=== PATIENT | female | born 1985 | race Caucasian/White ===

== ENCOUNTER 2016-08-15 01:14 | Emergency (ER) | payer SELFPAY ==
[~2016-08-15 01:14] MED LIST: AMOXICILLIN500 M1 PO; AMOXICILLIN875 MG PO; ANSAID100 MG PO; ANTIVERT PO; ANUSOL-HC CREAM30 G1 EXT; ARIXTRA10 MG/0.8 SQ; ASPIRIN EC81 M1 PO; ASPIRIN81 M2; BACTRIM DS TABL1 TA1 PO; BACTRIM DS TABL1 TA2 PO; BENTYL10 MG PO; BENTYL20 MG PO; CELEXA; CELEXA PO; COUMADIN7.5 MG PO; DICLOFENAC PO; FERROUS SULFATE PO; FLEXERIL10 MG PO; FLUOXETINE HCL40 MG; HCTZ; HYDRALAZINE HCL50 MG PO; HYDROCHLOROTH12.5 MG PO; HYDROCODON-ACE1 EAC7 PO; KCL; KEFLEX500 M1 PO; LISINOPRIL PO; LISINOPRIL-HCTZ1 T19; LISINOPRIL-HCTZ1 T19 PO; LISINOPRIL/HCTZ PO; LORTAB 10/500 T1 TAB PO; LORTAB 5-325 M1 EACH PO; MICRO-K PO; NAPROSYN500 MG PO; NORCO 10-325 TA1 TAB PO; NORCO 7.5-3251 EACH; ORUDIS75 M1 PO; PEN-VEE K PO; PENICILLIN PO; PERCOCET5/325 PO; PHENERGAN; PHENERGAN PO; PHENERGAN SUPP25 MG PR; PHENERGAN25 M1 PO; PHENERGAN25 MG PO; PHENERGAN25 MG PR; PROVERA PO; PROZAC PO; PYRIDIUM; PYRIDIUM PO; TYLENOL #3 PO; TYLOX 5-500 CA1 EACH PO; ULTRAM PO; VIBRAMYCIN100 M1 PO; VITAMIN B12; VOLTAREN75 MG PO; ZESTRIL10 MG; ZYRTEC10 M1; [UNRECOGNIZED DRUG - REMARK]
[2016-08-15 01:22] LABS: BASOPHIL# 0.1 X10e3 (0-0.3); BASOPHIL% 0.8 % (0-2.5); EOSINOPHIL# 0.1 X10e3 (0-0.7); EOSINOPHIL% 1.5 % (0.0-7.0); HEMATOCRIT 37.6 % (35.0-45.0); HEMOGLOBIN 11.6 gm/dL (12.0-16.0); LYMPHOCYTE# 3.2 X10e3 (1.0-3.5); LYMPHOCYTE% 32.5 % (17.0-45.0); MEAN CELL VOLUME 69.3 FL (83-96); MEAN CORPUSCULAR HEMOGLOBIN 21.4 PG (28-34); MEAN CORPUSCULAR HGB CONC 30.9 g/dL (30-36); MEAN PLATELET VOLUME 8.6 FL (6.5-11.5); MONOCYTE# 0.7 X10e3 (0-1.0); NEUTROPHIL# 5.8 X10e3 (1.5-7.1); NEUTROPHIL% 58.2 % (40-75); PLATELET COUNT 348 X10e3 (140-420); RED BLOOD COUNT 5.42 X10e (3.90-5.30); RED CELL DISTRIBUTION WIDTH 16.6 % (11.0-15.5)
[2016-08-15 01:35] LABS: DIFF IND NO
[2016-08-15 01:53] LABS: ALKALINE PHOSPHATASE 41 U/L (32-92); ALT (SGPT) 28 U/L (10-40); AMYLASE 22 U/L (0-46); AST (SGOT) 26 U/L (10-42); BILIRUBIN,TOTAL 0.6 mg/dL (0.2-2.0); BLOOD UREA NITROGEN 12 mg/dL (9-23); BUN/CREATININE RATIO 17.14; CALCIUM SERUM 9.4 mg/dL (8.4-10.2); CARBON DIOXIDE 23 mmol/L (22-31); CHLORIDE 103 mmol/L (100-111); CREATININE SERUM 0.7 mg/dL (0.6-1.4); GLOM FILT RATE Estimated 115.5 mL/min (>60); GLUCOSE FASTING 113 mg/dL (70-110); LIPASE 26 U/L (22-51); POTASSIUM 3.1 mmol/L (3.5-5.1); PROTEIN TOTAL SERUM 7.7 g/dL (6.0-8.3); SODIUM 136 mmol/L (135-145)
[2016-08-15 02:09] LABS: BILIRUBIN, DIRECT <0.1 mg/dL (0.0-0.2); BILIRUBIN,INDIRECT 0.5 mg/dL (0.0-0.9)
[2017-01-10] MEDS ORDERED: OMEPRAZOLE20 M2 PO (23:39)
[2017-01-10] MEDS ORDERED: BENTYL10 MG PO (23:40)
== END 2016-08-15 04:55 | disposition home or self-care (01) ==
LOC: CED 01:14
PROVIDERS: Emergency Medicine
DX: K52.9 Noninfective gastroenteritis and colitis, unspecified (principal); I10 Essential (primary) hypertension; F32.9 Major depressive disorder, single episode, unspecified; Z88.8 Allergy status to other drugs, medicaments and biological substances; Z79.899 Other long term (current) drug therapy; Z79.82 Long term (current) use of aspirin
CPT/HCPCS: 36415; 80048; 80076; 82150; 83690; 84703; 85025; 96361; 96374; 99284; J1885